=== PATIENT | male | born 1950 | race Two or more races ===

== ENCOUNTER 2021-10-12 02:18 | Emergency (ER) | payer OTHER ==
[~2021-10-12] VITALS: Ht 157.5 cm; Wt 65.5 kg
[~2021-10-12 02:18] MED LIST: ALPR0.5T8 PO; ASPI81TA39 PO; ATOR40TA28 PO; BUPR-121 PO; CLOP75TA60 PO; ISOS30TA92 PO; LEVO25TA9 PO; LISI-894 PO; METF-445 PO; MIRT-89 PO; MULT1CAP32 PO; NITR0.4T52 SL; QUET25TA PO; TAMS-1 PO
[2021-10-12 04:00] LABS: COVID AG,FIA SOURCE NASOPHARYNGEAL
[2021-10-12 05:00] VITALS: BP 137/88
== END 2021-10-12 07:00 | disposition home or self-care (01) ==
LOC: EDUNIT# 02:18 → EMS 02:19
DX: J06.9 Acute upper respiratory infection, unspecified (principal); E11.9 Type 2 diabetes mellitus without complications; E78.00 Pure hypercholesterolemia, unspecified; I10 Essential (primary) hypertension; Z20.822 Contact with and (suspected) exposure to COVID-19
CPT/HCPCS: 87426; 99283; U0003